=== PATIENT | male | born 1980 | race Caucasian/White ===

== ENCOUNTER 2020-10-24 18:33 | Emergency (ER) | payer SELFPAY ==
--- NOTE | 2020-10-24 18:36 | XRR_ITS ---
PROCEDURE INFORMATION: Exam: XR Right Hand Exam date and time: 10/24/2020 6:42 PM Age: 39 years old Clinical indication: Pain and injury or trauma; Other: Not specified; Blunt trauma (contusions or hematomas); Injury details: Right hand pain x 2 days TECHNIQUE: Imaging protocol: XR Right hand. Views: 3 or more views. COMPARISON: No relevant prior studies available. FINDINGS: Bones/joints: Fractures of the 4th and 5th metacarpals are present with displacement. Soft tissues: Normal. XR/XR hand RT min 3V* [id number] IMPRESSION: Fractures are present.
[2020-10-24 18:37] VITALS: BP 145/98; PULSE 106; RESP 14; TEMP 36.7; O2SAT 96; BMI 31.2
[2020-10-24 19:00] VITALS: PULSE 72
--- NOTE | 2020-10-24 19:02 | W.ED.EXTPRO ---
Documented by User: ELLEN Wasserman 10/25/20 00:13 HPI - Extremity Problem General: Chief complaint: Extremity Injury, Upper Stated complaint: injured right hand Time Seen by Provider: 10/24/20 19:00 History of Present Illness: HPI Narrative: Patient is a 39-year-old male comes to the ED with an injury to right hand. Injury occurred yesterday. Patient says he was playing around out on his driveway and he tripped and fell and hit the concrete with his right hand in a fist. Patient now has pain and swelling in the right hand around the fourth and fifth digits. He rates his pain currently a 7 out of 10. Associated symptoms: Deny chest pain, fever(s) or rash Review of Systems Const: Denies: fever(s), chills or fatigue Eyes: Denies: change in vision or eye discomfort ENMT: Denies: throat pain, odynophagia, nasal discharge or nasal congestion Card: Denies: chest pain, palpitations, edema, swelling of feet/ankles, dyspnea on exertion or orthopnea Resp: Denies: dyspnea, productive cough or non-productive cough GI: Denies: abdominal pain, nausea, vomiting, diarrhea, constipation or hematochezia : Denies: flank pain, difficulty urinating, dysuria or hematuria Musc: Reports: extremity pain (right hand) and extremity swelling (right hand); Denies: neck pain or back pain Skin/Breast: Denies: rash or new lesions Neuro: Denies: headache(s), numbness in extremities or weakness in extremities Physical Exam Const: COMMON NORMALS: no acute distress, patient oriented x3 and alert GENERAL APPEARANCE: cooperative and comfortable HENMT: COMMON NORMALS: normocephalic HEAD & SCALP: normocephalic MOUTH: Normal oral and palatal mucosa present THROAT: posterior oropharynx normal and uvula midline Neck/C-Spine: COMMON NORMALS: supple GENERAL: Yes normal visual inspection Resp: COMMON NORMALS: normal respiratory effort, No retractions, No use of accessory muscles and clear to auscultation bilaterally AUSCULTATION: clear to auscultation bilaterally Cardio: COMMON NORMALS: regular rate, regular rhythm, S1 normal heart sound present, S2 normal heart sound present, No gallops present (Cardio), No clicks present (Cardio), No murmurs present (Cardio) and Peripheral pulses 2+ throughout RATE: regular rate RHYTHM: regular rhythm HEART SOUNDS: S1 normal heart sound present and S2 normal heart sound present PERIPHERAL PULSES: Peripheral pulses 2+ throughout GI: COMMON NORMALS: Normal to inspection, nondistended, normoactive bowel sounds present, Soft to palpation, non-tender and no masses PALPATION: Yes Soft to palpation : COMMON NORMALS: Yes no CVA tenderness BLADDER/KIDNEY EXAM: Yes no CVA tenderness Back/Pelvis: COMMON NORMALS: no CVA tenderness Extremity: RIGHT UPPER EXTREMITY: Yes hand & digits Right hand and digits: Yes inspection (Edema and ecchymosis seen on hand over fourth and fifth metacarpal region.), Yes palpation (Tender over fourth and fifth metacarpal), Yes ROM exam (Limited due to pain) and Yes neurovascular exam (Intact) Neuro: COMMON NORMALS: patient oriented x3 and moves all extremities SENSORIUM/ORIENTATION: Yes alert Skin: GENERAL SKIN EXAM: dry skin Procedures Orthopedic Fracture Reduction Fracture #1: Time Out Performed: Yes Side: right Fracture Reduction Location: metacarpal (4th) Analgesia: hematoma block (lidocaine 2%) Technique: direct manipulation Post Reduction X-rays Demonstrate: acceptable reduction Post-reduction neuro exam: intact Post-reduction vascular exam: intact Splint Applied: Yes Patient Tolerated Procedure: well Course Vital Signs: Vital signs: Vital Signs Temperature 98.1 F 10/24/20 18:37 Pulse Rate 107 H 10/24/20 20:20 Respiratory Rate 18 10/24/20 20:20 Blood Pressure 135/94 10/24/20 20:20 Pulse Oximetry 95 10/24/20 20:20 MDM - Extremity (Nontraumatic) MDM Narrative: Medical decision making narrative: Patient is a 39-year-old male comes to the ED with right hand injury. Exam shows right hand is neurovascular intact and has significant swelling and pain over palpation of fourth and fifth metacarpals. X-ray of right hand shows fourth and fifth digit fracture of the metacarpals and fourth digit fracture has some displacement. I performed a hematoma block and reduced the fourth metacarpal fracture. Patient was then put in a ulnar gutter splint. I put a referral in with case management for patient to see orthopedic doctor and he also wanted to be established with a PCP. Return to ED precautions given. I told patient that case management will be contacting him to set up an appoint with orthopedic doctor and PCP. Patient understood and agreed with plan. Imaging Data^: Xray Ortho: Attestation: I personally reviewed and interpreted this imaging study as follows: My impression: Right hand x-ray showed fourth and fifth digit fracture of the shaft of the metacarpals. Fourth digit fracture has displacement. Post reduction [id number] metacarpal displaced fracture has improved and is in better alignment. Discharge Plan Discharge Patient Disposition: Home Clinical Impression: Boxer's fracture Qualifiers: Encounter type: initial encounter Fracture type: closed Qualified Code(s): S62.339A - Displaced fracture of neck of unspecified metacarpal bone, initial encounter for closed fracture Condition: Stable Prescriptions: No Action Trileptal 300 mg Tablet 300 mg PO BID@0700,2100 RF: 0 Remeron 15 mg Tablet 15 mg PO DAILY@2100 RF: 0 Discharge Orders: Discharge ED (Routine); Ordered 10/24/20 Ordered By: Noah Clarke Discharge Diet: Regular Discharge Activity: Limit activity as instructed Patient Instructions: Boxer Fracture (ED), Opioid Safety Activity Restrictions/Additional Instructions: Follow-up with medical provider as directed. Case management will be contacting you in the next several days to set up an appointment with an orthopedic doctor and her primary care physician. Keep splint on and dry and limit activity with right hand. Take medications as prescribed. Return to the ER or your medical provider if condition worsens. Please read and understand discharge instructions. If any questions, please ask. Coding Level of Care Code ED Chief Design Branch for Chg Fwd Exam Comprehensive Documented by User: Evelio Branch MD 10/25/20 18:16 HPI - Extremity Problem General: Chief complaint: Extremity Injury, Upper Stated complaint: injured right hand Time Seen by Provider: 10/24/20 19:00 Course Vital Signs: Vital signs: Vital Signs Temperature 98.1 F 10/24/20 18:37 Pulse Rate 107 H 10/24/20 20:20 Respiratory Rate 18 10/24/20 20:20 Blood Pressure 135/94 10/24/20 20:20 Pulse Oximetry 95 10/24/20 20:20 Discharge Plan Discharge Patient Disposition: Home Clinical Impression: Boxer's fracture Qualifiers: Encounter type: initial encounter Fracture type: closed Qualified Code(s): S62.339A - Displaced fracture of neck of unspecified metacarpal bone, initial encounter for closed fracture Condition: Stable Prescriptions: No Action Trileptal 300 mg Tablet 300 mg PO BID@0700,2100 RF: 0 Remeron 15 mg Tablet 15 mg PO DAILY@2100 RF: 0 Discharge Orders: Discharge ED (Routine); Ordered 10/24/20 Ordered By: Noah Clarke Discharge Diet: Regular Discharge Activity: Limit activity as instructed Patient Instructions: Boxer Fracture (ED), Opioid Safety Activity Restrictions/Additional Instructions: Follow-up with medical provider as directed. Case management will be contacting you in the next several days to set up an appointment with an orthopedic doctor and her primary care physician. Keep splint on and dry and limit activity with right hand. Take medications as prescribed. Return to the ER or your medical provider if condition worsens. Please read and understand discharge instructions. If any questions, please ask. Coding Level of Care Code ED Chief Design Branch for Primo Fwd Exam Comprehensive
[2020-10-24] MEDS: ketorolac 60 mg/2 mL INJ IM (19:14)
[2020-10-24] MEDS: lidocaine 2% INJ 20 mL INJECTION (19:16)
--- NOTE | 2020-10-24 19:25 | XRR_ITS ---
PROCEDURE INFORMATION: Exam: XR Right Hand Exam date and time: 10/24/2020 7:58 PM Age: 39 years old Clinical indication: Screening exam; Post reduction xray TECHNIQUE: Imaging protocol: XR Right hand. Views: 1 or 2 views. COMPARISON: CR XR hand RT min 3V* [id number] 10/24/2020 6:47 PM FINDINGS: Bones/joints: Fractures of the 4th and 5th metacarpal are present with slight displacement. Slight improvement is seen since the pre reduction x-rays. Soft tissues: Normal. XR/XR hand RT 2V [id number] IMPRESSION: Findings as above
[2020-10-24] MEDS: HYDROcodone-acetaminophen 7.5-325 mg Tablet 1 TAB PO (19:28)
[2020-10-24 20:20] VITALS: BP 135/94; PULSE 107; RESP 18; O2SAT 95
--- NOTE | 2020-10-25 08:46 | DCPLANNER ---
oil well drilling manager had a message to schedule a followup appointment for patient with ortho. oil well drilling manager called the ortho clinic, spoke with Herminia, gave clinic patients information. oil well drilling manager was told that patients information would be printed and reviewed. Clinic will call patient with appointment information.
--- NOTE | 2020-10-25 14:07 | DCPLANNER ---
branch general manager had message to speak with patient about getting established with a primary care physician. branch general manager spoke with patient, he stated that he would like to get established with a primary care physician. branch general manager called [facility], spoke with Hina. A follow up appointment was scheduled for Saturday, November 22, 2020 at 1:[address] Ruelas, disease case manager rn called patients friend, Jazz, and gave her the appointment information. branch general manager informed the patients friend that clinic would send patient a letter with appointment information and that patient would need to call the clinic and confirm the appointment.
--- NOTE | 2020-10-26 07:27 | DCPLANNER ---
Patient has a follow up appointment scheduled for Saturday, October 26, 2020 at 3:[address] Carnes at [facility]. Clinic will call patient with appointment information.
--- NOTE | 2020-10-27 14:43 | DCPLANNER ---
Addendum entered by Sabrina Son 11/04/20 13:21: [facility] will call patient with appointment information. Original Note: Herminia from the ortho clinic called case supervisor and informed case supervisor that after review of patients chart, patient will need to follow up with a hand specialist. chemical plant manager called patient and he stated that he would like to follow up with Bernice. chemical plant manager faxed patients information to Bernice.
--- NOTE | 2020-11-30 13:15 | DCPLANNER ---
Patient had a follow up appointment scheduled for 11.22.20 at [facility] with Dr. Cruz - appointment was cancelled.
== END 2020-10-24 20:22 | disposition home or self-care (01) ==
PROVIDERS: Emergency Provider Physician Assistant
DX: S62.334A Displaced fracture of neck of fourth metacarpal bone, right hand, initial encounter for closed fracture (principal); W01.0XXA Fall on same level from slipping, tripping and stumbling without subsequent striking against object, initial encounter
CPT/HCPCS: 29125; 73120; 73130; 96372; 99283; J1885

== ENCOUNTER → 2020-12-06 15:28 | Outpatient (BNVA) | payer SELFPAY | PROVIDERS: PCP Family Medicine Adult Medicine; Referring Provider Family Medicine Adult Medicine; Visit Provider Orthopaedic Surgery | DX: S22.000A Wedge compression fracture of unspecified thoracic vertebra, initial encounter for closed fracture (principal); S62.339A Displaced fracture of neck of unspecified metacarpal bone, initial encounter for closed fracture; G89.29 Other chronic pain; M54.9 Dorsalgia, unspecified; X58.XXXA Exposure to other specified factors, initial encounter | CPT/HCPCS: 72110; 73130 ==